=== PATIENT | female | born 1970 | race Caucasian/White ===

== ENCOUNTER 2023-07-02 11:47 | Emergency (ER) | payer MEDICARE, SELFPAY ==
[2023-07-02 11:55] VITALS: BP 137/67; PULSE 75; RESP 16; TEMP 36.3; O2SAT 98; BMI 25.5
--- NOTE | 2023-07-02 12:18 | ED_ITS ---
HPI - Dental/Oral General Chief complaint: Dental/Oral/Mouth Injury/Pain Stated complaint: Toothache Time Seen by Provider: 07/02/23 11:59 History of Present Illness HPI Narrative: This 53-year-old female comes in with severe dental pain that began last evening. She states that she called her dentist but he is not available today. She has a black tooth in the left upper posterior row that is now causing lots of pain. Related Data Home Medications Medication Instructions Recorded Confirmed bupropion HCl 200 mg tablet,12 hr 200 mg PO BID 07/02/23 07/02/23 sustained-release buspirone 30 mg tablet 30 mg PO BID 07/02/23 07/02/23 dulaglutide 3 mg/0.5 mL 3 mg subcut 07/02/23 subcutaneous pen injector (Trulicity) duloxetine 60 mg capsule,delayed 60 mg PO DAILY 07/02/23 07/02/23 release fenofibrate 160 mg tablet 160 mg PO DAILY 07/02/23 07/02/23 hydroxyzine pamoate 50 mg capsule 2 PO DAILY PRN 07/02/23 insulin lispro 100 unit/mL subcut 07/02/23 subcutaneous pen (Humalog KwikPen (U-100) Insulin) levocetirizine 5 mg tablet 5 mg PO QAM 07/02/23 07/02/23 metformin 500 mg tablet,extended 2,000 mg PO QPM 07/02/23 07/02/23 release 24 hr naloxone 4 mg/actuation nasal spray intranasal 07/02/23 omeprazole 40 mg capsule,delayed 40 mg PO DAILY 07/02/23 07/02/23 release pioglitazone 45 mg tablet 45 mg PO DAILY 07/02/23 07/02/23 pregabalin 150 mg capsule mg PO 07/02/23 risperidone 2 mg tablet 2 mg PO DAILY 07/02/23 07/02/23 simvastatin 40 mg tablet 40 mg PO QPM 07/02/23 07/02/23 Previous Rx's Medication Instructions Recorded amoxicillin 500 mg capsule 500 mg PO TID 7 days #21 caps 07/02/23 ketorolac 10 mg tablet 10 mg PO TID 5 days #15 tabs 07/02/23 Allergies Allergy/AdvReac Type Severity Reaction Status Date / Time ibuprofen Allergy Unknown Verified 07/02/23 11:52 morphine Allergy Unknown Rash Verified 07/02/23 11:52 Review of Systems Status of ROS: Reports: 10 or more systems reviewed and unremarkable except as noted in History and below Narrative: Constitutional: No fevers, no weight gain or loss. Eyes: No discharge. No vision changes. HENT: No congestion, no sore throat, no ear pain. Cardiovascular: No chest pain, no palpitations. Respiratory: No shortness of breath, no wheezes, no cough. Gastrointestinal: No abdominal pain, no vomiting, no diarrhea. Genitourinary: No dysuria, no hematuria. Musculoskeletal: Normal range of motion. Skin: No rashes, no pruritis. Neurological: No dizziness, weakness, sensory change, speech change. Endo/Heme/Allergies: No bruising or bleeding. No polydipsia. Pysch: no suicidality, no anxiety, no insomnia. All other systems reviewed and are negative. PFSH PFSH Social History Smoking Status: Current every day smoker How often do you have a drink containing alcohol: never AUDIT-C Alcohol total score: 0 Non-prescribed substance use: denies use Exam Narrative: Exam Narrative: Constitutional: Well-developed, well-nourished, no acute distress. HEENT: Normocephalic, atraumatic. Oropharynx shows fair dentition but 1 tooth is severely diseased and black appearing in the left upper posterior row of teeth. There is no sign of abscess. Neck: Normal range of motion. Nontender. Supple. Heart: Intact distal pulses. Lungs: No chest discomfort. No wheezes, rhonchi, or rales. Abdomen: Nontender. Back: Normal range of motion. Extremities: Normal range of motion. No injury. Skin: Intact. No rash. Warm. No erythema or pallor. Neurologic: No altered sensation. No weakness. Alert and oriented. Psychiatric: No suicidality. No anxiety or depression. No insomnia. Nursing notes and vitals signs are reviewed. Const: Vital Signs, click to edit/add: Vital Signs - 24 hr 07/02/23 11:55 Temperature 97.4 F L Pulse Rate [Pulse Oximeter] 75 Respiratory Rate 16 Blood Pressure [Ri ght Upper Arm] 137/67 Pulse Oximetry 98 Oxygen Delivery Me thod Room Air Course Vital Signs Vital signs: Initial Vital Signs Temperature 97.4 F L 07/02/23 11:55 Temperature Source Temporal Artery Scan 07/02/23 11:55 Pulse Rate 75 07/02/23 11:55 Pulse Rhythm Regular 07/02/23 11:55 Respiratory Rate 16 07/02/23 11:55 Blood Pressure 137/67 07/02/23 11:55 Blood Pressure Mean 90 07/02/23 11:55 Blood Pressure Position Sitting 07/02/23 11:55 Pulse Oximetry 98 07/02/23 11:55 Oxygen Delivery Method Room Air 07/02/23 11:55 Vital Signs Temperature 97.4 F L 07/02/23 11:55 Pulse Rate 75 07/02/23 11:55 Respiratory Rate 16 07/02/23 11:55 Blood Pressure 137/67 07/02/23 11:55 Pulse Oximetry 98 07/02/23 11:55 Oxygen Delivery Method Room Air 07/02/23 11:55 Temperature 97.4 F L 07/02/23 11:55 Pulse Rate 75 07/02/23 11:55 Respiratory Rate 16 07/02/23 11:55 Blood Pressure 137/67 07/02/23 11:55 Pulse Oximetry 98 07/02/23 11:55 Oxygen Delivery Method Room Air 07/02/23 11:55 MDM - Dental/Oral MDM Narrative Medical decision making narrative: This patient has severe dental pain and is agreeable to a dental nerve block. Using bupivacaine 0.25% I did inject around the lateral aspect of the left upper row to block the maxillary nerve. This brought rather immediate relief to her pain. She did received prescriptions for amoxicillin and Toradol. I advised her to follow-up with her dentist as soon as possible. Discharge Plan Discharge Clinical Impression: Dental caries, Toothache Patient Disposition: Home, Self-Care Condition: Improved Additional Instructions: Take medication as prescribed. Follow up with dentist as soon as possible. Prescriptions: New amoxicillin 500 mg capsule 500 mg PO TID 7 Days Qty: 21 0RF ketorolac 10 mg tablet 10 mg PO TID 5 Days Qty: 15 0RF No Action hydroxyzine pamoate 50 mg capsule 2 PO DAILY PRN pioglitazone 45 mg tablet 45 mg PO DAILY omeprazole 40 mg capsule,delayed release(DR/EC) 40 mg PO DAILY simvastatin 40 mg tablet 40 mg PO QPM risperidone 2 mg tablet 2 mg PO DAILY buspirone 30 mg tablet 30 mg PO BID metformin 500 mg tablet extended release 24 hr 2,000 mg PO QPM bupropion HCl 200 mg tablet sustained-release 12 hr 200 mg PO BID insulin lispro [Humalog KwikPen Insulin] 100 unit/mL insulin pen subcut duloxetine 60 mg capsule,delayed release(DR/EC) 60 mg PO DAILY fenofibrate 160 mg tablet 160 mg PO DAILY pregabalin 150 mg capsule PO levocetirizine 5 mg tablet 5 mg PO QAM naloxone 4 mg/actuation spray,non-aerosol INTRANASAL Patient Comments: PLEASE SEE ATTACHED FOR DETAILED DIRECTIONS Trulicity 3 mg/0.5 mL pen injector 3 mg subcut Stand Alone Forms: [facility] Info Instructions
--- OUTSIDE RECORDS SUMMARY | 2023-07-02 12:31 | XMS_ITS | Continuity of Care Document ---
Author Name Unknown Organization [facility] Address [address] [facility] [address] [address] [place] [address] Phone Care Team Providers Care Software Quality Engineer Name Role Phone RN, RN Unavailable Unavailable Allergies, Adverse Reactions, Alerts Substance Reaction Status Criticality ibuprofen swells Active No Information morphine itchy rash Active No Information Medications Medication Instructions Dosage Effective Dates (start - stop) Status Comments baclofen 10 mg tablet take 1 tablet by oral route 2 times every day 10 MG - Active duloxetine 30 mg capsule,delayed release take 1 capsule by oral route every day (with 60mg capsule) - Active duloxetine 60 mg capsule,delayed release take 1 Capsule by oral route every day (with 30mg capsule) - Active clonazepam 1 mg tablet take 2 tablet by oral route twice daily - Active multivitamin tablet take 1 Tablet by oral route every day with food 1 Tablet - Active CALCIUM 500-VIT D3 (unknown strength) take 1 Tablet by Oral route every day Not Available - Active Lantus Solostar 100 unit/mL (3 mL) subcutaneous insulin pen inject by subcutaneous route as per insulin protocol 0.00 - Active Novolog Flexpen 100 unit/mL subcutaneous inject by subcutaneous route per prescriber's instructions. Insulin dosing requires individualization. 0.00 - Active metformin 1,000 mg tablet take 1 tablet by oral route 2 times every day with morning and evening meals 1000 MG - Active lisinopril 40 mg tablet take 1 tablet by oral route every day 40 MG - Active pioglitazone 45 mg tablet take 1 tablet by oral route every day 45 MG - Active montelukast 10 mg tablet take 1 tablet by oral route every day in the evening 10 MG - Active fenofibrate 160 mg tablet take 1 tablet by oral route every day 160 MG - Active simvastatin 40 mg tablet take 1 tablet by oral route every day in the evening 40 MG - Active omeprazole 40 mg capsule,delayed release take 1 capsule by oral route every day before a meal 40 MG - Active levocetirizine 5 mg tablet take 1 tablet by oral route every day in the evening 5 MG - Active aspirin 325 mg tablet take 1 tablet by oral route every day 325 MG - Active Procedures Procedure Date Est Pt Eval 15 Min Pain Assessment And Follow Up Plan [facility] Est Pt Eval 15 Min Pain Assessment And Follow Up Plan [facility] Est Pt Eval 15 Min Pain Assessment And Follow Up Plan [facility] Est Pt Eval 25 Min Pain Assessment And Follow Up Plan [facility] Inj Anes Epidur; Lumb/sac 1 Le 15 Inj Anes Epidur; Lumb/sac 1 Le 15 Adverse Events did not occur Patient without preop order for prophyla ctic IV an Inj Anes Epidur; Lumb/sac 1 Le 15 Epidurography Mod cs by same phys, 5 yrs + Est Pt Eval 25 Min Pain Assessment And Follow Up Plan [facility] Est Pt Eval 25 Min Pain Assessment And Follow Up Plan [facility] Inj Anes Epidur; Lumb/sac 1 Le [...] Date Provider Providers Copied on Encounter JAISON DunawayC, [address], [place], [place], [address], [place] tel:[phone] [facility] No Information 6 RN RN. [address], [facility], [place], [address], [place]. tel:[phone] Referring Provider: Champ Cartagena, [address] [place] [address] Orthopedic s, [place], [address]. tel:[phone] Est Pt Eval 15 Min [facility], [address], [place], [place], [address], [place] tel:[phone] [facility] Spondylosis without myelopathy or radiculopathy, lumbar regionOther intervertebral disc degeneration, lumbar region 5 Beck Kemp. [address], [place], [place], [address], [place]. tel:[phone] Referring Provider: Champ Cartagena, [address] [place] [address] Orthopedic s, [place], [address]. tel:[phone] Est Pt Eval 15 Min [facility], [address], [place], [place], [address], [place] tel:[phone] [facility] No Information 5 Openda Joe. [address], [place], [address], [place]. tel:[phone] Referring Provider: Champ Cartagena, [address] [place] [address] Orthopedic s, [place], [address]. tel:[phone] Est Pt Eval 15 Min [facility], [facility], [address], [place], [place], [address], [place] tel:[phone] [facility] No Information 5 Openda Joe. [address], [place], [address], [place]. tel:[phone] Referring Provider: Champ Cartagena, [address] [facility], [place], [address]. tel:[phone] Est Pt Eval 25 Min [facility], [facility], [address], [place], [place], [address], [place] tel:[phone] [facility] No Information 5 Beck Kemp. [address], [place], [place], [address], [place]. tel:[phone] Referring Provider: Champ Cartagena, [address] [facility], [place], [address]. tel:[phone] [facility], [address], [place], [address], [place] tel:[phone] [facility] No Information 5 Krissy Jaramillo. [address], [place], [place], [address], [place]. tel:[phone] Referring Provider: Clint Del Rosario, [address], [place], [address] . tel:[phone] [facility], [address], [place], [place], [address], [place] tel:[phone] [facility] No Information 5 Krissy Jaramillo. [address], [place], [place], [address], [place]. tel:[phone] Referring Provider: Champ Cartagena, [address] [facility], [place], [address]. tel:[phone] Est Pt Eval 25 Min [facility], [facility], [address], [place], [place], [address], [place] tel:[phone] [facility] No Information 0 5 Solares Justo. [address], [place], [place], [address], [place]. tel:[phone] Referring Provider: Champ Cartagena, [address] [facility], [place], [address]. tel:[phone] Est Pt Eval 25 Min [facility], [facility], [address], [place], [place], [address], [place] tel:[phone] [facility] No Information 5 Beck Kemp. [address], [place], [place], [address], [place]. tel:[phone] Referring Provider: Champ Cartagena, [address] [facility], [place], [address]. tel:[phone] [facility], [address], [place], [address], [place] tel:[phone] [facility] [place] No Information 0 5 Krissy Jaramillo. [address], [place], [place], [address], [place]. tel:[phone] Referring Provider: Clint Del Rosario, [address], [place], [address] . tel:[phone] [facility], [address], [place], [place], [address], [place] tel:[phone] [facility] [place] No Information 0 5 Krissy Jaramillo. [address], [place], [place], [address], [place]. tel:[phone] Referring Provider: Champ Cartagena, [address] [facility], [place], [address]. tel:[phone] New Pt Eval 45 Min [facility], [facility], [address], [place], [place], [address], [place] tel:[phone] [facility] No Information 0201 5 Krissy Jaramillo. [address], [place], [place], [address], [place]. tel:[phone] Referring Provider: Champ Cartagena, [address] [facility], [place], [address]. tel:[phone] Family History Family Member Type Diagnosis Age At Onset Brother Problem (finding) hypertension Father Problem (finding) chronic obstructive sera g disease Brother Problem (finding) diabetes melli tus in first degree relative Mother Problem (finding) Heart disease Mother Problem (finding) diabetes melli tus in first degree relative Payers Payer name Insurance type Covered alliance party ID Benji green(s) Medicare Part B [id number] [employer] [id number] Social History Type Description Quantity Date Captured Comments Sex Female Smoking Status No Information Chief Complaint And Reason For Visit No Information Reason For Referral Reason For Referral No Information Plan Of Treatment Date Type Action Status Future Order: Radiology Order MR I - Lumbar Spine W/O Contrast ([id number]), Ordered on: Ordered History Of Present Illness Encounter Date Complaint History Of Prese nt Illness No Information Functional Status Date Functional Assessmen t No Information Instructions Date Instruction Additional Infor gabriela L-5 Lumbar TFESI education Assessments Type Assessment Date No Information Patient Care Teams Name Effective Dates (start - stop) Status Members No Information
[2023-07-02 12:51] VITALS: BP 137/67; PULSE 75; RESP 16; TEMP 36.3
== END 2023-07-02 12:50 | disposition home or self-care (01) ==
LOC: ED 12:28
PROVIDERS: Emergency Provider Emergency Medicine Emergency Medical Services
DX: K02.9 Dental caries, unspecified (principal); K08.89 Other specified disorders of teeth and supporting structures
CPT/HCPCS: 64400; 99283; 99284

== ENCOUNTER 2025-04-18 07:05 | Emergency (ER) | payer MEDICARE, SELFPAY ==
--- OUTSIDE RECORDS SUMMARY | 2015-11-28 04:35 | XMS_ITS | Continuity of Care Document ---
Author Organization JAISON Dunaway Address [address] [place] [address] Phone Care Team Providers Care Dupligraph Operator Name Role Phone RN, RN Unavailable Unavailable Allergies, Adverse Reactions, Alerts Substance Reaction Status Criticality ibuprofen swells Active No Information morphine itchy rash Active No Information Medications Medication Instructions Dosage Effective Dates (start - stop) Status Comments baclofen 10 mg tablet take 1 tablet by oral route 2 times every day 10 MG - Active clonazepam 1 mg tablet take 2 tablet by oral route twice daily - Active duloxetine 60 mg capsule,delayed release take 1 Capsule by oral route every day (with 30mg capsule) - Active duloxetine 30 mg capsule,delayed release take 1 capsule by oral route every day (with 60mg capsule) - Active CALCIUM 500-VIT D3 (unknown strength) take 1 Tablet by Oral route every day Not Available - Active multivitamin tablet take 1 Tablet by oral route every day with food 1 Tablet - Active aspirin 325 mg tablet take 1 tablet by oral route every day 325 MG - Active levocetirizine 5 mg tablet take 1 tablet by oral route every day in the evening 5 MG - Active omeprazole 40 mg capsule,delayed release take 1 capsule by oral route every day before a meal 40 MG - Active simvastatin 40 mg tablet take 1 tablet by oral route every day in the evening 40 MG - Active fenofibrate 160 mg tablet take 1 tablet by oral route every day 160 MG - Active montelukast 10 mg tablet take 1 tablet by oral route every day in the evening 10 MG - Active pioglitazone 45 mg tablet take 1 tablet by oral route every day 45 MG - Active lisinopril 40 mg tablet take 1 tablet by oral route every day 40 MG - Active metformin 1,000 mg tablet take 1 tablet by oral route 2 times every day with morning and evening meals 1000 MG - Active Novolog Flexpen 100 unit/mL subcutaneous inject by subcutaneous route per prescriber's instructions. Insulin dosing requires individualization. 0.00 - Active Lantus Solostar 100 unit/mL (3 mL) subcutaneous insulin pen inject by subcutaneous route as per insulin protocol 0.00 - Active Procedures Procedure Date Est Pt Eval 15 Min Pain Assessment And Follow Up Plan Doc ent Est Pt Eval 15 Min Pain Assessment And Follow Up Plan Docregency meridian Est Pt Eval 15 Min Pain Assessment And Follow Up Plan [facility]idian Est Pt Eval 25 Min Pain Assessment And Follow Up Plan [facility] Inj Anes Epidur; Lumb/sac 1 Le 15 Inj Anes Epidur; Lumb/sac 1 Le 15 Adverse Events did not occur Patient without preop order for prophyla ctic IV an Inj Anes Epidur; Lumb/sac 1 Le 15 Epidurography Mod cs by same phys, 5 yrs + Est Pt Eval 25 Min Pain Assessment And Follow Up Plan [facility] Est Pt Eval 25 Min Pain Assessment And Follow Up Plan [facility] Inj Anes Epidur; Lumb/sac 1 Le 15 Inj Anes Epidur; Lumb/sac 1 Le 15 Adverse Events did not occur Patient without preop order for prophyla ctic IV an Inj Anes Epidur; Lumb/sac 1 Le 15 New Pt Eval 45 Min Assay of benzodiazepines Assay of amphetamine or methamphetamine Assay of barbiturates, not elsewhere spe cified Assay of cocaine or metabolite 15 Assay of methadone Opiate(s), drug and metabolites, each pr ocedure Drug confirmation, each procedure Pain Assessment And Follow Up Plan Docum ented Advance Directives Directive Yes / No Effective Date File Name No Information Encounters Encounter Description Practice Location Reason(s) For Visit Diagnoses Date Provider Providers Copied on Encounter JAISON Dunaway, [address], [place], [place], [id number], [place] tel:[phone] [facility] No Information 6 RN RN. [address], [facility], [place], [id number], [place]. tel:[phone] Referring Provider: Champ Cartagena, [address] [facility], [place], [address]. tel:[phone] Est Pt Eval 15 Min [facility], [address], [place], [place], [address], [place] tel:[phone] [facility] Other intervertebral disc degeneration, lumbar regionSpondylosi s without myelopathy or radiculopathy, lumbar region 5 Beck Kemp. [address], [place], [place], [address], [place]. tel:[phone] Referring Provider: Champ Catragena, [address] [place] [address] Orthopedic [facility], [place], [address]. tel:[phone] Est Pt Eval 15 Min [facility], [address], [place], [place], [address], [place] tel:[phone] [facility] No Information 5 Openda Oje. [address], [place], [address], [place]. tel:[phone] Referring Provider: Champ Cartagena, [address] [place] [address] Orthopedic [facility], [place], [address]. tel:[phone] Est Pt Eval 15 Min [facility], [facility], [address], [place], [place], [address], [place] tel:[phone] [facility] No Information 5 Openda Joe. [address], [place], [address], [place]. tel:[phone] Referring Provider: Champ Cartagena, [address] [facility], [place], [address]. tel:[phone] Est Pt Eval 25 Min [facility], [facility], [address], [place], [place], [address], [place] tel:[phone] [facility] No Information 5 Beck Kemp. [address], [place], [place], [address], [place]. tel:[phone] Referring Provider: Champ Cartagena, [address] [facility], [place], [address]. tel:[phone] [facility], [address], [place], [address], [place] tel:[phone] [facility] No Information 5 Krissy Jaramillo. [address], [place], [place], [address], [place]. tel:[phone] Referring Provider: Clint Del Rosario, [address], [place], [address] . tel:[phone] [facility], [facility], [address], [place], [place], [address], [place] tel:[phone] [facility] [place] No Information 5 Krissy Jaramillo. [address], [place], [place], [address], [place]. tel:[phone] Referring Provider: Champ Cartagena, [address] [facility], [place], [address]. tel:[phone] Est Pt Eval 25 Min Gume, [facility], [address], [place], [place], [address], [place] tel:[phone] [facility] No Information 5 Beck Kemp. [address] [facility] [address] [facility] [address], [place], [place], [address], [place]. tel:[phone] Referring Provider: Champ Cartagena, [address] [facility], [place], [address]. tel:[phone] Est Pt Eval 25 Min Gume, [facility], [address], [place], [place], [address], [place] tel:[phone] [facility] No Information 5 Beck Kemp. [address], [place], [place], [address], [place]. tel:[phone] Referring Provider: Champ Cartagena, [address] [facility], [place], [address]. tel:[phone] [facility], [address], [place], [address], [place] tel:[phone] [facility] [place] No Information 5 Krissy Jaramillo. [address], [place], [place], [address], [place]. tel:[phone] Referring Provider: Clint Del Rosario, [address], [place], [address] . tel:[phone] [facility], [facility], [address], [place], [place], [address], [place] tel:[phone] [facility] [place] No Information 0 5 Krissy Jaramillo. [address], [place], [place], [address], [place]. tel:[phone] Referring Provider: Champ Cartagena, [address] [facility], [place], [address]. tel:[phone] New Pt Eval 45 Min Gume, [facility], [address], [place], [place], [address], [place] tel:[phone] [facility] No Information 0 5 Krissy Jaramillo. [address], [place], [place], [address], [place]. tel:[phone] Referring Provider: Champ Cartagena, [address] [facility], [place], [address]. tel:[phone] Family History Family Member Type Diagnosis Age At Onset Brother Problem (finding) hypertension Father Problem (finding) chronic obstructive sera g disease Brother Problem (finding) diabetes melli tus in first degree relative Mother Problem (finding) Heart disease Mother Problem (finding) diabetes melli tus in first degree relative Payers Payer name Insurance type Covered libertarian ID Benji green(s) Medicare Part B [id number] W/C [employer] [id number] Social History Type Description Quantity Date Captured Comments Sex Female Smoking Status No Information Chief Complaint And Reason For Visit No Information Reason For Referral Reason For Referral No Information Plan Of Treatment Date Type Action Status Future Order: Radiology Order MR I - Lumbar Spine W/O Contrast ([id number]), Ordered on: Ordered History Of Present Illness Encounter Date Complaint History Of Prese nt Illness No Information Functional Status Date Functional Assessmen t No Information Instructions Date Instruction Additional Infor dianaion L-5 Lumbar TFESI education Assessments Type Assessment Date No Information Patient Care Teams Name Effective Dates (start - stop) Status Members No Information
--- NOTE | 2025-04-18 07:06 | ED.GENADULT ---
HPI - General Adult General Time Seen by Provider: 07:06 <Torey Tinoco MD - Last Filed: 04/23/25 16:01> Date Seen: 04/18/25 <Torey Tinoco MD - Last Filed: 04/23/25 16:01> Chief complaint: Nausea/Vomiting <Torey Tinoco MD - Last Filed: 04/23/25 16:01> Stated complaint: Nausea, vomiting <Torey Tinoco MD - Last Filed: 04/23/25 16:01> Time Seen by Provider: 04/18/25 07:06 <Torey Tinoco MD - Last Filed: 04/23/25 16:01> Source: patient, family, RN notes reviewed and old records reviewed <Torey Tinoco MD - Last Filed: 04/23/25 16:01> Mode of arrival: ambulatory <Torey Tinoco MD - Last Filed: 04/23/25 16:01> Limitations: no limitations <Torey Tinoco MD - Last Filed: 04/23/25 16:01> History of Present Illness HPI narrative: 55-year-old female with history of diabetes presents today with nausea and vomiting. This been going on for 4 days. No diarrhea. Some abdominal pain. No chest pain, had some lightheadedness. Denies urinary symptoms although mentions a recent urinary tract infection. Patient reports prior hernia repair with mesh but no other abdominal surgeries. <Torey Tinoco MD - Last Filed: 04/23/25 16:01> Related Data Home medications: Home Medications ?Medication ?Instructions ?Recorded ?Confirmed bupropion HCl 200 mg tablet,12 hr 200 mg PO BID 07/02/23 07/02/23 sustained-release buspirone 30 mg tablet 30 mg PO BID 07/02/23 07/02/23 dulaglutide 3 mg/0.5 mL 3 mg subcut 07/02/23 subcutaneous pen injector (Paige) duloxetine 60 mg capsule,delayed 60 mg PO DAILY 07/02/23 07/02/23 release fenofibrate 160 mg tablet 160 mg PO DAILY 07/02/23 07/02/23 hydroxyzine pamoate 50 mg capsule 2 PO DAILY PRN 07/02/23 insulin lispro 100 unit/mL subcut 07/02/23 subcutaneous pen (Humalog KwikPen (U-100) Insulin) levocetirizine 5 mg tablet 5 mg PO QAM 07/02/23 07/02/23 metformin 500 mg tablet,extended 2,000 mg PO QPM 07/02/23 07/02/23 release 24 hr naloxone 4 mg/actuation nasal spray intranasal 07/02/23 omeprazole 40 mg capsule,delayed 40 mg PO DAILY 07/02/23 07/02/23 release pioglitazone 45 mg tablet 45 mg PO DAILY 07/02/23 07/02/23 pregabalin 150 mg capsule mg PO 07/02/23 risperidone 2 mg tablet 2 mg PO DAILY 07/02/23 07/02/23 simvastatin 40 mg tablet 40 mg PO QPM 07/02/23 07/02/23 Previous Rx's ?Medication ?Instructions ?Recorded amoxicillin 500 mg capsule 500 mg PO TID 7 days #21 caps 07/02/23 ketorolac 10 mg tablet 10 mg PO TID 5 days #15 tabs 07/02/23 <Torey Tinoco MD - Last Filed: 04/23/25 16:01> Allergies/adverse reactions: Allergies Allergy/AdvReac Type Severity Reaction Status Date / Time ibuprofen Allergy Unknown Verified 04/18/25 08:00 morphine Allergy Unknown Rash Verified 04/18/25 08:00 <Torey Tinoco MD - Last Filed: 04/23/25 16:01> [facility] Social History: Social History Smoking Status: Current every day smoker How often do you have a drink containing alcohol: never AUDIT-C Alcohol total score: 0 Non-prescribed substance use: denies use <Torey Tinoco MD - Last Filed: 04/23/25 16:01> Exam Narrative: Exam Narrative: General: Well-developed and well-nourished, no acute distress Head: Atraumatic and normocephalic Eyes: Pupils are equal reactive, extraocular motions intact, conjunctiva clear ENT: External nose and ears are normal, posterior pharynx without erythema or exudate Neck: No midline cervical tenderness, full spontaneous range of motion the neck, trachea midline, no adenopathy Heart: Tachycardic but regular, no murmurs Lungs: Clear to auscultation bilaterally without wheezes or crackles Abdomen: Soft, suprapubic and right lower quadrant tenderness, nondistended with active bowel sounds Musculoskeletal: No tenderness, deformity, or edema Neurologic: Awake, alert, and oriented x3, no gross focal neurologic deficits, cranial nerves intact as tested Psych: Mood and affect are appropriate Skin: No rashes <Torey Tinoco MD - Last Filed: 04/23/25 16:01> Const: Vital Signs, click to edit/add: Vital Signs - 24 hr 04/18/25 07:09 04/18/25 08:10 04/18/25 08:30 Temperature 97.3 F L Pulse Rate 95 100 Pulse Rate [Pulse Oximeter] 125 H Respiratory Rate 14 19 14 Blood Pressure 131/67 Blood Pressure [Ri ght Upper Arm] 102/69 Pulse Oximetry 95 92 96 Oxygen Delivery Me thod Room Air <Torey Tinoco MD - Last Filed: 04/23/25 16:01> Vital Signs, click to edit/add: Vital Signs - 24 hr 04/18/25 07:09 04/18/25 08:10 04/18/25 08:30 Temperature 97.3 F L Pulse Rate 95 100 Pulse Rate [Pulse Oximeter] 125 H Respiratory Rate 14 19 14 Blood Pressure 131/67 Blood Pressure [Ri ght Upper Arm] 102/69 Pulse Oximetry 95 92 96 Oxygen Delivery Me thod Room Air <Hector Childress MD - Last Filed: 04/18/25 09:18> Course Course ED Course: Reviewed most recent pain management clinic from March 28, at that time and recently started Ozempic, continued to have chronic neck pain, takes methadone 10 mg 3 times a day, also medical cannabis, Klonopin 0.5 mg t.i.d. Patient presents today with 4 days of nausea vomiting. No diarrhea, low abdominal pain. No urinary symptoms. On exam here, tachycardic and borderline low blood pressure, dry mucous membranes, suprapubic and right lower quadrant tenderness. Concern for possible bowel obstruction, pancreatitis, acute cholecystitis, appendicitis, urinary tract infection, kidney stone. Labs and IV fluids are ordered along with CT abdomen and pelvis. Anticipate sign out to oncoming provider. <Torey Tinoco MD - Last Filed: 04/23/25 16:01> Reevaluation(s) Time of Reevaluation #1: 07:32 <Torey Tinoco MD - Last Filed: 04/23/25 16:01> Reevaluation #1: EKG independently interpreted by me performed at 7:30 a.m. demonstrates sinus tachycardia rate 111, nonspecific ST changes possible LVH normal intervals, normal axis, QTC 465. No prior for comparison. <Torey Tinoco MD - Last Filed: 04/23/25 16:01> Vital Signs Vital signs: Initial Vital Signs Temperature 97.3 F L 04/18/25 07:09 Temperature Source Temporal Artery Scan 04/18/25 07:09 Pulse Rate 125 H 04/18/25 07:09 Respiratory Rate 14 04/18/25 07:09 Blood Pressure 102/69 04/18/25 07:09 Blood Pressure Mean 80 04/18/25 07:09 Blood Pressure Position Sitting 04/18/25 07:09 Pulse Oximetry 95 04/18/25 07:09 Oxygen Delivery Method Room Air 04/18/25 07:09 Vital Signs Temperature 97.3 F L 04/18/25 07:09 Pulse Rate 125 H 04/18/25 07:09 Respiratory Rate 14 04/18/25 07:09 Blood Pressure 102/69 04/18/25 07:09 Pulse Oximetry 95 04/18/25 07:09 Oxygen Delivery Method Room Air 04/18/25 07:09 Temperature 97.3 F L 04/18/25 07:09 Pulse Rate 100 04/18/25 08:30 Respiratory Rate 14 04/18/25 08:30 Blood Pressure 131/67 04/18/25 08:10 Pulse Oximetry 96 04/18/25 08:30 Oxygen Delivery Method Room Air 04/18/25 07:09 <Torey Tinoco MD - Last Filed: 04/23/25 16:01> Initial Vital Signs Temperature 97.3 F L 04/18/25 07:09 Temperature Source Temporal Artery Scan 04/18/25 07:09 Pulse Rate 125 H 04/18/25 07:09 Respiratory Rate 14 04/18/25 07:09 Blood Pressure 102/69 04/18/25 07:09 Blood Pressure Mean 80 04/18/25 07:09 Blood Pressure Position Sitting 04/18/25 07:09 Pulse Oximetry 95 04/18/25 07:09 Oxygen Delivery Method Room Air 04/18/25 07:09 Vital Signs Temperature 97.3 F L 04/18/25 07:09 Pulse Rate 125 H 04/18/25 07:09 Respiratory Rate 14 04/18/25 07:09 Blood Pressure 102/69 04/18/25 07:09 Pulse Oximetry 95 04/18/25 07:09 Oxygen Delivery Method Room Air 04/18/25 07:09 Temperature 97.3 F L 04/18/25 07:09 Pulse Rate 100 04/18/25 08:30 Respiratory Rate 14 04/18/25 08:30 Blood Pressure 131/67 04/18/25 08:10 Pulse Oximetry 96 04/18/25 08:30 Oxygen Delivery Method Room Air 04/18/25 07:09 <Hector Childress MD - Last Filed: 04/18/25 09:18> Medications Administered Medications: Discontinued Medications Generic Name Dose Route Start Last Admin Trade Name Freq PRN Reason Stop Dose Admin Famotidine 20 mg 04/18/25 07:38 04/18/25 08:11 Famotidine 10 Mg/Ml Inj IVP 04/18/25 07:39 20 mg ONCE ONE Administration Sodium Chloride 1,000 mls @ 1,000 mls/hr 04/18/25 07:30 04/18/25 09:00 0.9 % Sodium Chloride 1000 Ml IV 04/18/25 08:29 Infused .Q1H HAYDER Infusion Sodium Chloride 1,000 mls @ 6,000 mls/hr 04/18/25 09:15 04/18/25 09:53 0.9 % Sodium Chloride 1000 Ml IV 04/18/25 09:24 Infused .Q10M HAYDER Infusion Insulin Human Regular 7 unit 04/18/25 08:22 04/18/25 08:41 Insulin Regular, Human 100 Unit/Ml Vial SUBCUT 04/18/25 08:23 7 unit ONCE ONE Administration Ondansetron HCl 4 mg 04/18/25 07:31 04/18/25 07:48 Ondansetron 2 Mg/Ml Inj IVP 04/18/25 07:32 4 mg ONCE ONE Administration <Torey Tinoco MD - Last Filed: 04/23/25 16:01> Discontinued Medications Generic Name Dose Route Start Last Admin Trade Name Freq PRN Reason Stop Dose Admin Famotidine 20 mg 04/18/25 07:38 04/18/25 08:11 Famotidine 10 Mg/Ml Inj IVP 04/18/25 07:39 20 mg ONCE ONE Administration Sodium Chloride 1,000 mls @ 1,000 mls/hr 04/18/25 07:30 04/18/25 09:00 0.9 % Sodium Chloride 1000 Ml IV 04/18/25 08:29 Infused .Q1H HAYDER Infusion Sodium Chloride 1,000 mls @ 6,000 mls/hr 04/18/25 09:15 04/18/25 09:53 0.9 % Sodium Chloride 1000 Ml IV 04/18/25 09:24 Infused .Q10M HAYDER Infusion Insulin Human Regular 7 unit 04/18/25 08:22 04/18/25 08:41 Insulin Regular, Human 100 Unit/Ml Vial SUBCUT 04/18/25 08:23 7 unit ONCE ONE Administration Ondansetron HCl 4 mg 04/18/25 07:31 04/18/25 07:48 Ondansetron 2 Mg/Ml Inj IVP 04/18/25 07:32 4 mg ONCE ONE Administration <Hector Childress MD - Last Filed: 04/18/25 09:18> Medical Decision Making MDM Narrative Medical decision making narrative: Addendum 8:37 a.m.: The patient's blood sugar is elevated at 380 she is given 7 units of subcu regular insulin. She has not been eating much so she has held her insulin did not take it today. She will continue to monitor blood sugars at home and then take half her normal insulin dose and then advance that as her blood sugar remained stable and she starts eating. She can try a light diet clear liquids advance to full liquids and then a brat type diet bananas rice applesauce toast as she is able to tolerate over the next [address] was otherwise reassuring, her labs I suspect demonstrate that she is slightly dry and dehydrated and we have given her rehydration. She does feel better. She has Vistaril at home to take for nausea. If she has trouble or concerns she can return to the ED. Her she and her family are comfortable plan. The patient's pCO2 was low, VBG, her O2 oxygen level was also elevated, making me think this was maybe an arterial blood gas. The patient has been anxious and likely hyperventilated some. She does feel better, her labs otherwise look reassuring. Given she has improved I do not think this bears repeating. Addendum 9:17 a.m.. Because the patient's CO was low in sugar was still high we gave her another L of fluid. Checked another VBG that showed a pH is 7.22, pCO2 39 PC PO2 37 and bicarb 16. She did get insulin. She did get IV fluid another L as mention and she is feeling better she is able to eat apple juice and Jell-O. I think at this point she can be discharged home show monitor sugar carefully half her insulin dose until she is eating well. Continue to monitor blood sugars contact her regular physician the next 24 hours for update sooner problems or concerns return to the ED. She was comfortable this plan. She does not have ongoing nausea vomiting or diarrhea. <Hector Childress MD - Last Filed: 04/18/25 09:18> Lab Data Labs: Lab Results 04/18/25 04/18/25 04/18/25 Range/Units 07:45 08:24 09:03 WBC 11.48 H (4.50-11.00) K/uL RBC 5.77 H (4.00-5.20) m/uL Hgb 15.2 (12.0-16.0) gm/dL Hct 46.6 (33.0-51.0) % MCV 81 (80-100) fL MCH 26 (26-34) pg MCHC 33 (32-36) gm/dL RDW Coeff of Mirna 12.9 (11.5-15.5) % Plt Count 302 (140-440) K/uL Neut % (Auto) 80.8 H (42.0-72.0) % Lymph % (Auto) 13.9 L (20-44) % [place] % (Auto) 4.7 (0.0-11.0) % Eos % (Auto) 0.0 (0.0-7.0) % Baso % (Auto) 0.3 (0.0-3.0) % Neut # (Auto) 9.30 H (1.7-7.0) K/uL Lymph # (Auto) 1.60 (0.90-2.90) K/uL [place]ole # (Auto) 0.50 (0.00-0.90) K/UL Eos # (Auto) 0.00 (0.00-0.50) K/uL Baso # (Auto) 0.00 (0.00-0.30) K/uL Abs Immat Gran (auto) 0.00 (0.00-0.30) K/uL Imm/Tot Granulo (auto) 0.3 % VBG pH 7.280 L 7.220 L* (7.32-7.43) VBG pCO2 27 L 39 L (40-50) mmHG VBG pO2 86.0 H 37.7 (25-47) mmHG VBG HCO3 12 L 16 L (21-28) mmol/L Sodium 137 (135-149) mmol/L Potassium 4.1 (3.6-5.1) mmol/L Chloride 98 (96-114) mmol/L Carbon Dioxide 9 L* (20-32) mmol/L Anion Gap 30 H (7-15) mEq/L BUN 33 H (7-30) mg/dL Creatinine 1.0 (0.5-1.5) mg/dL Estimated GFR 67 ml/min Glucose 363 H* (60-115) mg/dL Lactate 2.6 H (0.5-1.9) mmol/L Calcium 9.8 (8.4-10.6) mg/dL Magnesium 1.4 L (1.5-2.6) mg/dL Total Bilirubin 0.6 (0.1-1.5) mg/dL Direct Bilirubin 0.5 (0.0-0.5) mg/dL AST 25 (12-35) U/L ALT 22 (4-35) U/L Alkaline Phosphatase 53 (40-150) U/L Total Protein 7.7 (6.0-8.3) g/dL Albumin 4.8 (3.3-5.0) g/dL Lipase 160 (23-300) U/L Urine Color Light yellow (Yellow) Urine Appearance Clear (Clear) Urine pH 5.0 (5.0-8.5) Ur Specific [place] 1.015 (1.000-1.030) Urine Protein 1+ A (Negative) Urine Glucose (UA) 2+ A (Negative) Urine Ketones 4+ A (Negative) Urine Blood Trace-intact A (Negative) Urine Nitrite Negative (Negative) Urine Bilirubin 1+ A (Negative) Urine Urobilinogen 0.2 (0.2-1.0) Ur Leukocyte Esterase Negative (Negative) Urine RBC 0-2 (0-2) Urine WBC 2-5 (0-5) Ur Squamous Epith Cells Few (None-Few) Other Sediment HYALINE CASTS (None) Urine Bacteria Few A (None) POC Glucose 383 H* (60-115) mg/dl POC Creatinine 0.8 (0.6-1.3) mg/dl <Torey Tinoco MD - Last Filed: 04/23/25 16:01> Lab Results 04/18/25 04/18/25 04/18/25 Range/Units 07:45 08:24 09:03 WBC 11.48 H (4.50-11.00) K/uL RBC 5.77 H (4.00-5.20) m/uL Hgb 15.2 (12.0-16.0) gm/dL Hct 46.6 (33.0-51.0) % MCV 81 (80-100) fL MCH 26 (26-34) pg MCHC 33 (32-36) gm/dL RDW Coeff of Mirna 12.9 (11.5-15.5) % Plt Count 302 (140-440) K/uL Neut % (Auto) 80.8 H (42.0-72.0) % Lymph % (Auto) 13.9 L (20-44) % [place]ole % (Auto) 4.7 (0.0-11.0) % Eos % (Auto) 0.0 (0.0-7.0) % Baso % (Auto) 0.3 (0.0-3.0) % Neut # (Auto) 9.30 H (1.7-7.0) K/uL Lymph # (Auto) 1.60 (0.90-2.90) K/uL [place]ole # (Auto) 0.50 (0.00-0.90) K/UL Eos # (Auto) 0.00 (0.00-0.50) K/uL Baso # (Auto) 0.00 (0.00-0.30) K/uL Abs Immat Gran (auto) 0.00 (0.00-0.30) K/uL Imm/Tot Granulo (auto) 0.3 % VBG pH 7.280 L 7.220 L* (7.32-7.43) VBG pCO2 27 L 39 L (40-50) mmHG VBG pO2 86.0 H 37.7 (25-47) mmHG VBG HCO3 12 L 16 L (21-28) mmol/L Sodium 137 (135-149) mmol/L Potassium 4.1 (3.6-5.1) mmol/L Chloride 98 (96-114) mmol/L Carbon Dioxide 9 L* (20-32) mmol/L Anion Gap 30 H (7-15) mEq/L BUN 33 H (7-30) mg/dL Creatinine 1.0 (0.5-1.5) mg/dL Estimated GFR 67 ml/min Glucose 363 H* (60-115) mg/dL Lactate 2.6 H (0.5-1.9) mmol/L Calcium 9.8 (8.4-10.6) mg/dL Magnesium 1.4 L (1.5-2.6) mg/dL Total Bilirubin 0.6 (0.1-1.5) mg/dL Direct Bilirubin 0.5 (0.0-0.5) mg/dL AST 25 (12-35) U/L ALT 22 (4-35) U/L Alkaline Phosphatase 53 (40-150) U/L Total Protein 7.7 (6.0-8.3) g/dL Albumin 4.8 (3.3-5.0) g/dL Lipase 160 (23-300) U/L Urine Color Light yellow (Yellow) Urine Appearance Clear (Clear) Urine pH 5.0 (5.0-8.5) Ur Specific [place] 1.015 (1.000-1.030) Urine Protein 1+ A (Negative) Urine Glucose (UA) 2+ A (Negative) Urine Ketones 4+ A (Negative) Urine Blood Trace-intact A (Negative) Urine Nitrite Negative (Negative) Urine Bilirubin 1+ A (Negative) Urine Urobilinogen 0.2 (0.2-1.0) Ur Leukocyte Esterase Negative (Negative) Urine RBC 0-2 (0-2) Urine WBC 2-5 (0-5) Ur Squamous Epith Cells Few (None-Few) Other Sediment HYALINE CASTS (None) Urine Bacteria Few A (None) POC Glucose 383 H* (60-115) mg/dl POC Creatinine 0.8 (0.6-1.3) mg/dl <Hector T Meland, MD - Last Filed: 04/18/25 09:18> Discharge Plan Discharge Clinical Impression: Gastroenteritis, Dehydration, Diabetes <Torey Tinoco MD - Last Filed: 04/23/25 16:01> Patient Disposition: Home w/ Parent or Adult <Torey Tinoco MD - Last Filed: 04/23/25 16:01> Condition: Improved <Torey Tinoco MD - Last Filed: 04/23/25 16:01> Additional Instructions: Light diet and advanced as tolerated, use half her normal insulin dose for the next 24 hours or so until your sugars stable. Continue check her sugars several times a day at home. Use Vistaril as needed for nausea. You can return as needed. Update your regular doctor and see them within the next 2-3 days would be recommended as well. <Torey Tinoco MD - Last Filed: 04/23/25 16:01> Activity Level: Light activity <Torey Tinoco MD - Last Filed: 04/23/25 16:01> Light activity <Hector Childress MD - Last Filed: 04/18/25 09:18> Discharge Diet: Full Liquid <Torey Tinoco MD - Last Filed: 04/23/25 16:01> Full Liquid <Hector Childress MD - Last Filed: 04/18/25 09:18> Diet Detail: Advance diet as tolerated <Torey Tinoco MD - Last Filed: 04/23/25 16:01> Advance diet as tolerated <Hector Childress MD - Last Filed: 04/18/25 09:18> Prescriptions: No Action hydroxyzine pamoate 50 mg capsule 2 PO DAILY PRN pioglitazone 45 mg tablet 45 mg PO DAILY omeprazole 40 mg capsule,delayed release(DR/EC) 40 mg PO DAILY simvastatin 40 mg tablet 40 mg PO QPM risperidone 2 mg tablet 2 mg PO DAILY buspirone 30 mg tablet 30 mg PO BID metformin 500 mg tablet extended release 24 hr 2,000 mg PO QPM bupropion HCl 200 mg tablet sustained-release 12 hr 200 mg PO BID insulin lispro [Humalog KwikPen Insulin] 100 unit/mL insulin pen subcut duloxetine 60 mg capsule,delayed release(DR/EC) 60 mg PO DAILY fenofibrate 160 mg tablet 160 mg PO DAILY pregabalin 150 mg capsule PO levocetirizine 5 mg tablet 5 mg PO QAM naloxone 4 mg/actuation spray,non-aerosol INTRANASAL Patient Comments: PLEASE SEE ATTACHED FOR DETAILED DIRECTIONS Trulicity 3 mg/0.5 mL pen injector 3 mg subcut amoxicillin 500 mg capsule 500 mg PO TID 7 Days Qty: 21 0RF ketorolac 10 mg tablet 10 mg PO TID 5 Days Qty: 15 0RF <Torey Tinoco MD - Last Filed: 04/23/25 16:01> Follow Up/Referrals: Provider,Not a Local [Primary Care Provider, Family Practice] <Torey Tinoco MD - Last Filed: 04/23/25 16:01> Stand Alone Forms: MyHealth Info Instructions <Torey Tinoco MD - Last Filed: 04/23/25 16:01> Procedures ABG Interpretation ABG Results: 04/18/25 04/18/25 07:45 09:03 VBG pH 7.280 L 7.220 L* VBG pCO2 27 L 39 L VBG pO2 86.0 H 37.7 VBG HCO3 12 L 16 L <Torey Tinoco MD - Last Filed: 04/23/25 16:01> 04/18/25 04/18/25 07:45 09:03 VBG pH 7.280 L 7.220 L* VBG pCO2 27 L 39 L VBG pO2 86.0 H 37.7 VBG HCO3 12 L 16 L <Hector Childress MD - Last Filed: 04/18/25 09:18>
--- OUTSIDE RECORDS SUMMARY | 2025-04-18 07:07 | XMS_ITS | Clinical Summary ---
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 Slate Name Role Phone Unavailable Primary Care Provider Unavailabl e Allergies Active Allergy Reactions Criticality Noted Date Comments Morphine Rash 11/04/2005 [place] Hives 03/08/2012 Medications VICODIN ES 7.5 MG-750 MG TAB take 1 tab by mouth 3 times daily for chronic back pain 0 Active METHADONE 10 MG TAB take 2 tabs by mouth 3 times daily for chronic back pain 0 Active BACLOFEN 10 MG TAB take 2 tabs by mouth 3 times a day for sciatic nerve pain 0 Active MULTIVITAMIN TAB take 1 tablet by oral route once daily with food for supplement 0 Active ASPIRIN 325 MG TAB, DELAYED RELEASE Once daily 0 11/21/19 08 Active TYLENOL PM EXTRA STRENGTH 25 MG-500 MG TAB take 2 tablets by oral route once daily at bedtime 0 0 02/14/20 09 Active calcium carbonate-vitamin D3, 600 mg-400 unit, (CALCIUM 600 + D) tablet Take 1 tablet by mouth 2 times daily with meals. 0 07/25/20 10 Active DULoxetine (CYMBALTA) 60 mg capsule Take by mouth. 1 tab daily 0 05/04/20 11 Active pregabalin (LYRICA) 75 mg capsule Take by mouth 2 times daily. 2 oral twice daily 0 07/28/20 11 Active blood sugar diagnostic (BLOOD GLUCOSE TEST) stripIndications:Type II or unspecified type diabetes mellitus without mention of complication, not stated as uncontrolled (HC) Dispense test strips covered by the patient insurance. Test 3 times per day. Diabetes mellitus insulin treated 3 Bottle 1 07/28/20 11 Active simvastatin (ZOCOR) 40 mg tabletIndications:Pur e hyperglyceridemia Take 1 tablet by mouth once daily in the evening. 90 tablet 0 05/04/20 12 Active levocetirizine (XYZAL) 5 mg Tab tablet Take 1 tablet by mouth once daily in the evening. 90 tablet 1 05/20/20 12 Active clonazePAM (KLONOPIN) 1 mg tablet Take by mouth 3 times daily. 0 05/25/20 12 Active metFORMIN (GLUCOPHAGE) 1,000 mg tabletIndications:Typ e II or unspecified type diabetes mellitus without mention of complication, not stated as uncontrolled (HC) Take 1 tablet by mouth 2 times daily with meals. 180 tablet 0 09/09/19 13 Active ipratropium-albuterol (COMBIVENT) 18-103 mcg/actuation inhalerIndications:To bacco use disorder Inhale 2 Puffs by mouth 4 times daily. 14.7 g 2 10/12/19 13 Active hydrOXYzine pamoate (VISTARIL) 25 mg capsule Take 2 capsules by mouth every 8 hours if needed for Other (Specify). 60 capsule 0 11/01/19 13 Active fenofibrate micronized 160 mg tabletIndications:Pur e hyperglyceridemia Take 1 tablet by mouth once daily with a meal. 90 tablet 0 11/01/19 13 Active glipiZIDE (GLUCOTROL) 5 mg tabletIndications:Typ e II or unspecified type diabetes mellitus without mention of complication, not stated as uncontrolled (HC) Take 1 tablet by mouth once daily before a meal. Patient will call for refills 90 tablet 0 11/05/19 13 Active lisinopril (PRINIVIL; ZESTRIL) 40 mg tabletIndications:Typ e II or unspecified type diabetes mellitus without mention of complication, not stated as uncontrolled (HC),Microalbuminuria ,HTN (hypertension) TAKE 2 TABLETS BY MOUTH ONCE DAILY 60 tablet 5 02/12/20 13 Active montelukast (SINGULAIR) 10 mg tabletIndications:[place] allergic rhinitis TAKE 1 TABLET BY MOUTH AT BEDTIME 90 tablet 0 10/18/19 14 Active Active Problems Problem Noted Date Diagnosed Date Lumbosacral radiculopathy at L2 10/31/2012 Microalbuminuria 05/25/2012 HTN (hypertension) 05/25/2012 Protruded cervical disc, C4-5 02/03/2012 Bulging disc, C spine 05/13/2011 Recurrent UTI 05/13/2011 Seasonal allergic rhinitis 05/13/2010 Endometriosis, site unspecified 03/16/2007 Lesion of radial nerve 09/03/2006 Backache, unspecified 01/06/2006 Overview (01/06/2006): methadone and vicodin per Dr[facility] [place]. Other and unspecified specia l symptom or syndrome, not elsewhere classified 01/06/2006 Overview (01/06/2006): congenital disorder fat metabolism- Dr. Grace [facility] [place] [facility] Pure hyperglyceridemia 01/06/2006 Overview (01/06/2006): Dr. Grace [facility] Calculus of kidney 01/06/2006 Overview (01/06/2006): Lithotripsy NEUROPATHY - DIABETIC 04/02/2005 DIABETES MELLITUS - TYPE II 12/09/1999 Major depressive disorder, single episode, unspe cified Overview (01/27/2008): psychiatry Tobacco use disorder Dysmenorrhea Overview (04/02/2009): s/p partial hysterectomy Resolved Problems Problem Noted Date Diagnosed Date Resolved Date Urinary tract infection, site not specified 04/02/2005 01/06/2006 HYPERCHOLESTEROLEMIA, PURE 09/08/2002 0 01/06/2006 ABDOMINAL PAIN - GENERAL 04/12/2001 Hematuria 04/06/2001 01/06/2006 Immunizations Immunization Administration Dates Next Due AMB Influenza, IIV3 (Age >=3 years)(Flu Clinic Only) 05/03/2012 Hepatitis B (Adult) 02/17/2006 Hepatitis B (Peds) 09/18/2005,08/18/2005 Influenza, IIV3 (Age >=3 years) 05/13/2010,05/17,06/03/2004 Pneumococcal Poly,23-Valent (Pneumovax) 01/04/20 01 Td (Age >=7 Years) 01/03/2001 Tdap 11/13/2011 Family History Medical History Relation Name Comments Other Brother Hypertension Father age 55 Cancer Maternal Grandfather Diabetes Mother Heart Disease Mother CO at age 45, Other Mother lipodystrophy Relation Name Status Comments Brother Father Maternal Grandfather Mother Social History Tobacco Use Types Packs/Day Years Used Date Smoking Tobacco: Every Day Cigarettes 0.5 1 Smokeless Tobacco: Never Tobacco Cessation:Ready to Q uit: No; Counseling Given: Yes Comments:pamphlet given last visit Alcohol Use Standard Drinks/Week Comments No 0 (1 standard drink = 0.6 oz pur e alcohol) Alcoholic Drinks/day: 0 Comments No Sex and Gender Information Value Date Recorded Sex Assigned at Not on file Legal Sex Female 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 Gender Identity Not on file Sexual Orientation Not on file 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 Not on file Not on file Not on file Obstetrics History Para Term AB IAB SAB Ectopic Multiple Livin g Live Births 1 1 1 0 0 0 0 0 1 Date Outcome GA Total Labor Labor/2nd/3rd Weight Sex Type Anes PTL Debra A1 A5 Name Clin Term Last Filed Vital Signs Vital Sign Reading Time Taken Comments Blood Pressure 90/56 10/31/2012 1:19 PM CDT Pulse 80 10/31/2012 1:19 PM CDT Temperature 36.8 C (98.3 F) 05/04/2011 9:24 AM CDT Respiratory Rate 16 08/19/2010 1:55 PM MATERIAL PROCESSOR Oxygen Saturation 97% 12/10/2010 1:07 PM CDT Inhaled Oxygen Concentration - - Weight 65.2 kg (143 lb 11.2 oz) 10/31/2012 1:19 PM CDT Height 155.6 cm (5' 1.25) 04/02/2009 1 1:17 AM CDT Body Mass Index 26.93 04/02/2009 11:17 AM CDT Plan of Treatment Health Maintenance Due Date Last Done Comments Depression screening for age 12+ 1983 HIV for age 15-65 1986 BMI (ht and wt on same day) for age 18+ 1989 Hepatitis B series for 19+ ( 2 of 3 - 19+ 3-dose series) 03/17/2006 02/17/2006, 09/18/2005, 08/18/2005 Pap test for age 21-65 04/02/2012 9, 01/06/2006, 12/22/2004, Additional history exists Colonoscopy through age 75 2016 Mammogram for age 45-75 2016 05/11/2012, 05/04 Lipids for age 45-75 10/12/2017 10/12/2012, 02/03/2012, 02/19/2011, Additional history exists Pneumococcal series for age 50+ (2 of 2 - PCV) 2021 01/03/2001 Zoster (shingles) series for age 50+ (1 of 2) 2021 Tetanus booster 11/12/2021 11/13/2011, 01/03/2001 COVID-19 vaccine series ( season) 2024 05/12/2022, 11/28/2020, 10/31/2020 Influenza Vaccine (#1) 2025 2, 05/13/2010, 05/17/2009, Additional history exists RSV vaccine for adults or (1 - 1-dose 75+ series) 2046 Hepatitis C screening for ag e 18-79 Completed 07/31/2005, 04/26/2003 Procedures Procedure Name Priority Date/Time Associated Diagnosis Comments LIPID PANEL W REFLEX MEASURED LDL Routine 10/12/2012 11:47 AM MATERIAL PROCESSOR DIABETES MELLITUS - TYPE II XR MAMMO BILAT SCREEN FFDM W JAMILA (IA) Routine 05/11/2012 11:04 AM CDT Other screening mammogram [employer] THIN PREP PAP SCREEN IMAGED Routine 04/02/2009 1:35 PM CDT Screening for Malignant Neoplasm of the Cervix ANTI HCV Timed 07/31/2005 9:53 AM MATERIAL PROCESSOR from Last 3 Months or Most Recently Relevant to Health Maintenance Results * (ABNORMAL) LIPID PANEL W REFLEX MEASURED LDL (10/12/2012 11:47 AM MATERIAL PROCESSOR) CHOLESTEROL,TOTA L 109 100 - 199 mg/dL [facility] TRIGLYCERIDES 205(H) <150 mg/dL [facility] HDL CHOLESTEROL 32(L) >40 mg/dL [facility] CHOL/HDL RATIO 3.41 <4.50 [facility] NON-HDL CHOLESTEROL 77 Undefined mg/dL [facility] LDL CHOLESTEROL 36 <131 mg/dL [facility] PATIENT STATUS Fasting [facility] Blood specimen (specimen) BLOOD SPECIMEN / Unknown 10/12/2012 11:47 AM MATERIAL PROCESSOR 10/12/2012 11:47 AM MATERIAL PROCESSOR us Zuleika Bloom MD CHEMISTRY Final Result [facility] INTERNAL ZIP [id number] [place] [id number] * XR MAMMO BILAT SCREEN FFDM W JAMILA (05/11/2012 11:04 AM CDT) Anatomical Region Laterality Modality BREASTS, Breast Left, Breast Right Bilateral Mammography Impressions 05/11/2012 12:03 PM CDT There is no radiographic evidence for malignancy. Recommend annual mammograms. A lay language report of this examination will be provided to the patient. MAMMOGRAM ASSESSMENT: ACR 2 Benign Narrative 05/11/2012 12:03 PM CDT XR MAMMO BILAT SCREEN FFDM W JAMILA [G0202.5] CLINICAL HISTORY: This is an asymptomatic 42 y.o. patient. INDICATION FOR EXAM: Mammogram Screening. TECHNIQUE: CC & MLO views were obtained. This digital study was evaluated with the assistance of Computer-Aided Detection. COMPARISON FILMS: Yes 05/04/11 [facility] FINDINGS: Mammographically, the breast tissue is extremely dense. This may lower the sensitivity of mammography (>75% glandular). No suspicious masses or microcalcifications. Implant(s) within both breasts and Benign appearing calcifications within left breast. Procedure Note Taiwo Canela DO - 05/11/2012 XR MAMMO BILAT SCREEN FFDM W JAMILA [G0202.5] CLINICAL HISTORY: This is an asymptomatic 42 y.o. patient. INDICATION FOR EXAM: Mammogram Screening. TECHNIQUE: CC & MLO views were obtained. This digital study was evaluatedwith the assistance of Computer-Aided Detection. COMPARISON FILMS: Yes 05/04/11 [facility] FINDINGS: Mammographically, the breast tissue is extremely dense. Thismay lower the sensitivity of mammography (>75% glandular). No suspiciousmasses or microcalcifications. Implant(s) within both breasts and Benignappearing calcifications within left breast. IMPRESSION: There is no radiographic evidence for malignancy. Recommendannual mammograms. A lay language report of this examination will be provided to the patient. MAMMOGRAM ASSESSMENT: ACR 2 Benign us Zuleika Bloom MD MAMMO Final Result * [employer] THIN PREP PAP SCREEN IMAGED (04/02/2009 1:35 PM CDT) CYTOLOGY CYTOPATHOLOGY REPORT [facility] Status: Final Status [id number] CLINICAL INFORMATION Last Date of LMP :03/19/2009 Last Pap Date :01/06/2006 Last Pap Result :NIL ABN [place]/Bx Past 5 YRS :None Hormone Usage :None Menstrual Status :Hyst-cervix present [place]/Bx done today :No Additional :PATIENT STATES STILL HAS MONTHLY BLEEDING Information HPV Request :HPV if ASCUS SPECIMEN SOURCE :Cervical/vaginal ThinPrep Vial, screening SPECIMEN ADEQUACY :Satisfactory for evaluation No endocervical component seen. INTERPRETATION/RES ULT Negative for intraepithelial lesion or malignancy (NIL) Cytology 1st Screener :had Signed by :had This specimen was screened by the FDA approved ThinPrep Imaging System and manually reviewed. NOTE: The Pap test is a screening technique, not a diagnostic procedure. It is used primarily to screen for squamous cancers and precursor lesions. Published studies have shown that it is subject to both false negative and false positive results. The pap test should not be used as the sole means to diagnose or exclude pre-malignant and malignant lesions. COLLECTED:04/02/09 ACCESSIONED: 04/03/09 SIGNED: 04/10/09 [facility] PAP [place] CODE NIL [facility] Cervical/Vaginal (Cervical/Vagina l) 04/02/2009 1:35 PM CDT 04/02/2009 1:18 PM CDT us Zuleika Bloom MD PATHOLOGY/CYTOLOGY Final Resul t [facility] INTERNAL ZIP [id number] [place] [id number] * ANTI HCV (07/31/2005 9:53 AM MATERIAL PROCESSOR) ANTI HCV Non-reactiv e [facility] 07/31/2005 9:53 AM MATERIAL PROCESSOR 07/31/2005 5:01 PM MATERIAL PROCESSOR Narrative [facility] - 08/04/2005 9:55 AM MATERIAL PROCESSOR Testing Performed By [place] us Adele Ball MD SEND OUTS F inal Result [facility] [address] [place] [address] from Last 3 Months or Most Recently Relevant to Health Maintenance Insurance MEDICARE [place] ONLY MEDICARE PART B HB ONLY MEDICARE PART A HB ONLY Advance Directives * Full Code (Latest Code Status on File) Date Activated Date Inactivated Comments 03/16/2007 11:14 AM 03/17/2007 8:55 PM * Full Code Date Activated Date Inactivated Comments 03/16/2007 7:22 AM 03/16/2007 11:14 AM
[2025-04-18 07:09] VITALS: BP 102/69; PULSE 125; RESP 14; TEMP 36.3; O2SAT 95
--- NOTE | 2025-04-18 07:25 | CRLHL7_ITS ---
For Patients: As a result of the Century Cures Act, medical imaging exams and procedure reports are released immediately into your electronic medical record. You may view this report before your referring provider. If you have questions, please contact your health care provider. INDICATION: Vomiting. Lower abdominal pain. Not eating for 4 days. COMPARISON: October 21, 2012 and April 08, 2010. TECHNIQUE: CT examination of the abdomen and pelvis was performed following the uneventful intravenous administration of 59 cc of Isovue 370. Thin section axial images were obtained from the lung bases through the pubic symphysis. Oral contrast was not administered. Please note that all CT scans at this facility use dose modulation, iterative reconstruction, and/or weight-based dosing when appropriate to reduce radiation dose to as low as reasonably achievable. FINDINGS: LUNG BASES: Linear opacities probably atelectasis or scarring. Heart size normal the lung bases. There is lipomatous hypertrophy of the intra-atrial septum. Bilateral breast implants.The heart size is normal at the lung bases. LIVER/BILIARY SYSTEM:The liver is normal in size and configuration. There is no focal mass and there is no intra- or extra hepatic biliary ductal dilatation.Steatosis. Normal-appearing gallbladder ADRENALS: Normal KIDNEYS, URETERS and BLADDER:The kidneys appear normal. No visible mass, calculus or hydronephrosis. The ureters and bladder as visualized appear normal. SPLEEN:Normal appearance. PANCREAS: Appears normal. RETROPERITONEUM and MESENTERY: There is no mass, adenopathy or aortic aneurysm. Atherosclerotic vascular calcification GASTROINTESTINAL SYSTEM: There is no evidence of mechanical obstruction of small or large bowel. Mild fecal retention. No evidence of diverticulitis or colitis. There is hyperdense material within the lumen of the mid and right lateral aspect of the transverse colon. I favor this is orally administered hyperdense material such as antacid containing aluminum, bismuth or calcium. Correlate with the clinical history. If the patient has not taken that within the last 2 days, this could represent GI bleeding. PELVIS: No mass, adenopathy or free fluid. OSSEOUS STRUCTURES and ABDOMINAL WALL: There is an age-appropriate appearance of the osseous structures.No significant abdominal wall defect. OTHER: No free fluid or free air. IMPRESSION: 1. No evidence of mechanical obstruction small and large bowel. Mild fecal retention. Diverticulosis. 2. Hyperdense material within the lumen of the mid and right lateral aspect of the transverse colon. I favor this is orally administered antacid. If the patient has not orally ingested radiodense material within the last few days, this could represent GI bleeding. Correlate with clinical history. 3. Other nonacute appearing findings as discussed above Please note that all CT scans at this facility use dose modulation, iterative reconstruction, and/or weight-based dosing when appropriate to reduce radiation dose to as low as reasonably achievable. Dictated by mR Carpenter MD @ 04/18/2025 8:23:29 AM (Electronically Signed)
[2025-04-18] MEDS: ONDANSETRON 2 MG/ML inj 4 MG IVP (07:48)
[2025-04-18 07:58] LABS: HCO3 VBG 12 mmol/L (21-28); PCO2 VBG 27 mmHG (40-50); PO2 VBG 86.0 mmHG (25-47); pH VBG 7.280 (7.32-7.43)
[2025-04-18 08:00] LABS: Lactate* 2.6 mmol/L (0.5-1.9)
[2025-04-18 08:02] LABS: Creatinine, Point-of-Care* 0.8 mg/dl (0.6-1.3); Glucose, Point-of-Care* 383 mg/dl (60-115)
[2025-04-18 08:03] LABS: Hematocrit 46.6 % (33.0-51.0); Hemoglobin* 15.2 gm/dL (12.0-16.0); Immature Granulocytes Pct Auto 0.3 %; Mean Corpuscular HGB Conc 33 gm/dL (32-36); Mean Corpuscular Hemoglobin 26 pg (26-34); Mean Corpuscular Volume 81 fL (80-100); RDW Coefficient of Variation % 12.9 % (11.5-15.5); Red Blood Count 5.77 m/uL (4.00-5.20); White Blood Count* 11.48 K/uL (4.50-11.00)
[2025-04-18 08:05] LABS: Immature Granulocytes Abs Auto 0.00 K/uL (0.00-0.30); Lymphocytes Absolute Auto 1.60 K/uL (0.90-2.90); Slide Review Reflex No
[2025-04-18 08:10] VITALS: BP 131/67; PULSE 95; RESP 19; O2SAT 92
[2025-04-18] MEDS: FAMOTIDINE 10 MG/ML inj 20 MG IVP (08:11)
[2025-04-18 08:19] LABS: Albumin* 4.8 g/dL (3.3-5.0); Chloride* 98 mmol/L (96-114); Potassium* 4.1 mmol/L (3.6-5.1); Sodium* 137 mmol/L (135-149)
[2025-04-18 08:21] LABS: Blood Urea Nitrogen* 33 mg/dL (7-30); Creatinine* 1.0 mg/dL (0.5-1.5); Estimated Glomerular Filt Rate 67 ml/min
[2025-04-18 08:22] LABS: Alanine Aminotransferase* 22 U/L (4-35); Alkaline Phosphatase* 53 U/L (40-150); Aspartate Amino Transferase* 25 U/L (12-35); Bilirubin Direct* 0.5 mg/dL (0.0-0.5); Bilirubin Total* 0.6 mg/dL (0.1-1.5); Calcium* 9.8 mg/dL (8.4-10.6); Total Protein* 7.7 g/dL (6.0-8.3)
[2025-04-18 08:27] LABS: Anion Gap 30 mEq/L (7-15)
[2025-04-18 08:30] VITALS: PULSE 100; RESP 14; O2SAT 96
[2025-04-18 08:31] LABS: Carbon Dioxide* 9 mmol/L (20-32); Glucose* 363 mg/dL (60-115)
[2025-04-18] MEDS: INSULIN REGULAR, HUMAN 100 UNIT/ML VIAL 7 UNIT SUBCUT (08:41)
[2025-04-18 08:47] LABS: Appearance Urine Clear (Clear)
[2025-04-18 08:58] LABS: Other Sediment Urine HYALINE CASTS
[2025-04-18 09:07] LABS: HCO3 VBG 16 mmol/L (21-28); PCO2 VBG 39 mmHG (40-50); PO2 VBG 37.7 mmHG (25-47)
[2025-04-18 09:09] LABS: pH VBG 7.220 (7.32-7.43)
== END 2025-04-18 09:55 | disposition home or self-care (01) ==
PROVIDERS: Family Medicine; Emergency Provider Family Medicine
DX: K52.9 Noninfective gastroenteritis and colitis, unspecified (principal); E86.0 Dehydration; E11.9 Type 2 diabetes mellitus without complications; Z79.4 Long term (current) use of insulin
CPT/HCPCS: 36415; 74177; 80048; 80076; 81001; 82565; 82803; 82947; 83605; 83690; 83735; 85025; 87086; 93005; 96374; 96375; 99284; 99285; J1308; J1815; J2405; J7030; Q9967